=== PATIENT | male | born 1955 | race Caucasian/White ===

== ENCOUNTER 2017-12-27 11:20 | Emergency (ER) | payer SELFPAY ==
[~2017-12-27] VITALS: Ht 182.8 cm; Wt 93.9 kg
[2017-12-27] MEDS ORDERED: NAPROSYN500 MG PO (13:00)
[2017-12-27] MEDS ORDERED: NORCO 5-325 TA1 EACH PO (13:01)
== END 2017-12-27 13:58 | disposition home or self-care (01) ==
LOC: ED 11:20
DX: S49.91XA Unspecified injury of right shoulder and upper arm, initial encounter (principal); F17.200 Nicotine dependence, unspecified, uncomplicated; W00.0XXA Fall on same level due to ice and snow, initial encounter; Y93.89 Activity, other specified; Y92.89 Other specified places as the place of occurrence of the external cause; Y99.8 Other external cause status

== ENCOUNTER → 2025-03-31 | Day surgery (SDC) | payer MEDICARE ==
[~2025-03-31] VITALS: Ht 182.8 cm; Wt 99.8 kg
[~2025-03-31] MED LIST: AMOX-CLAV 875-1 EACH PO; HUMALOG100 UNIT/1 SQ; LANTUS SOL100 UNIT/1 SC; Lactated Ringer's Solution 500 ML IV ONE; Lidocaine Hydrochloride 2% 5 ML SDV IM ONE; NAPROSYN500 MG PO; NORCO 5-325 TA1 EACH PO; PREDNISONE10 MG PO; PROPOFOL 200 MG/20 ML VIAL IV ONE; PROTONIX40 MG PO; VENT7GM INH
[2025-03-31 10:14] VITALS: BP 116/82
[2025-03-31 11:35] VITALS: BP 98/66
[2025-03-31 11:50] VITALS: BP 104/76
[2025-03-31 12:04] VITALS: BP 117/80
== END | disposition home or self-care (01) ==
LOC: SDC 03-27 11:00
PROVIDERS: ATTEND Surgery
DX: R13.19 Other dysphagia (principal); K29.80 Duodenitis without bleeding; K21.9 Gastro-esophageal reflux disease without esophagitis; K44.9 Diaphragmatic hernia without obstruction or gangrene; K22.10 Ulcer of esophagus without bleeding; E11.9 Type 2 diabetes mellitus without complications; J44.9 Chronic obstructive pulmonary disease, unspecified; Z79.899 Other long term (current) drug therapy; Z98.890 Other specified postprocedural states

== ENCOUNTER → 2025-08-06 | Outpatient (CLI) | payer MEDICARE ==
[~2025-08-06] MED LIST changes: -Lactated Ringer's Solution 500 ML IV ONE; -Lidocaine Hydrochloride 2% 5 ML SDV IM ONE; -PROPOFOL 200 MG/20 ML VIAL IV ONE
== END ==
LOC: ORTHO 00:44
PROVIDERS: ATTEND Orthopaedic Surgery
DX: M79.89 Other specified soft tissue disorders (principal); M25.529 Pain in unspecified elbow; M77.8 Other enthesopathies, not elsewhere classified

== ENCOUNTER → 2025-09-11 | Day surgery (SDC) | payer MEDICARE ==
[2025-09-09 14:13] LABS: BUN 13 mg/dl (9-23)
[~2025-09-11] VITALS: Ht 182.8 cm; Wt 102.1 kg
[~2025-09-11] MED LIST changes: +ACETAMINOPHEN 100 ML IV ONE; +Bupivacaine Hydrochloride/Ep2 30 ML VIAL ONE; +Dexamethasone Sodium Phospha 4 MG/ML VIAL IV ONE; +HYDROCODONE-AC1 EAC1 PO; +Lactated Ringer's Solution 1,000 ML IV ONE; +Lidocaine Hydrochloride 2% 5 ML SDV IM ONE; +Midazolam Hydrochloride 2 MG/2 ML VIAL IV ONE; +OXYCODONE-ACET1 EAC3 PO; +Ondansetron Hydrochloride 4 MG/2 ML VIAL IV ONE; +SEVOFLURANE 250 ML BOT INH ONE; +ceFAZolin sodium/sodium chlor 20 ML IV ONE
[2025-09-11 08:30] VITALS: BP 157/88
[2025-09-11 10:40] VITALS: BP 105/53
[2025-09-11 11:10] VITALS: BP 134/77
[2025-09-11 11:25] VITALS: BP 132/68
[2025-09-11 11:40] VITALS: BP 133/67
== END | disposition home or self-care (01) ==
LOC: SDC 09-02 08:45
PROVIDERS: ATTEND Orthopaedic Surgery
DX: M86.8X7 Other osteomyelitis, ankle and foot (principal); M25.722 Osteophyte, left elbow; M19.071 Primary osteoarthritis, right ankle and foot; L89.626 Pressure-induced deep tissue damage of left heel; M84.362D Stress fracture, left tibia, subsequent encounter for fracture with routine healing; M84.364D Stress fracture, left fibula, subsequent encounter for fracture with routine healing; I25.2 Old myocardial infarction; I25.10 Atherosclerotic heart disease of native coronary artery without angina pectoris; I50.9 Heart failure, unspecified; I12.0 Hypertensive chronic kidney disease with stage 5 chronic kidney disease or end stage renal disease; E11.22 Type 2 diabetes mellitus with diabetic chronic kidney disease; N18.30 Chronic kidney disease, stage 3 unspecified; K21.9 Gastro-esophageal reflux disease without esophagitis; E03.9 Hypothyroidism, unspecified; E11.42 Type 2 diabetes mellitus with diabetic polyneuropathy; E78.00 Pure hypercholesterolemia, unspecified; Z88.0 Allergy status to penicillin; Z79.899 Other long term (current) drug therapy